=== PATIENT | male | born 1945 | race Caucasian/White ===

== ENCOUNTER 2016-05-08 12:00 | Inpatient (IN) | payer MEDICARE, OTHER ==
[~2016-05-08] VITALS: Ht 175.3 cm; Wt 141.2 kg
[2016-05-09] MEDS ORDERED: LEVO-154 PO (10:45)
[2016-05-09] MEDS ORDERED: METF500T PO (10:45)
[2016-05-09] MEDS ORDERED: ACTO30TA10 PO (10:45)
[2016-05-09] MEDS ORDERED: FENO145T2 PO (10:45)
[2016-05-09] MEDS ORDERED: DICL75TA PO (10:45)
[2016-05-09] MEDS ORDERED: METO25TA6 PO (10:45)
[2016-05-09] MEDS ORDERED: TEST200I12 IM (10:45)
[2016-05-09] MEDS ORDERED: ROSU10 PO (10:45)
[2016-05-09] MEDS ORDERED: MULT-135 PO (10:45)
[2016-05-09] MEDS ORDERED: IRBE300T46 PO (10:45)
[2016-05-09] MEDS ORDERED: OXYC-433 PO (10:45)
[2016-05-09] MEDS ORDERED: LANTINJ SQ (10:45)
--- NOTE | 2016-05-16 12:45 | MH ---
cc: PATRICIA ROWE DANNY M. M.D. DATE OF ADMISSION: 05/22/2016 ADMITTING DIAGNOSIS: Osteoarthritis of the left knee, varus deformity left knee patellofemoral disorder left knee pain left knee. HISTORY The patient is a 70-year-old white male who has had a rather lengthy history of pain involving his left knee. He had originally noted the onset of his symptoms unrelated to injury or unusual activity but had undergone previous orthopedic evaluation dating back to 1997 at which time the patient reports she was diagnosed as having a mild arthritic condition. He was also diagnosed as having osteoarthritis of his right hip for which she did subsequently undergo right total hip arthroplasty with the passage of time he became progressively more symptomatic with pain involving his left knee, becoming unresponsive to continued conservative management. He tried to modify his activities describing considerable limitation with regards to his endurance and weightbearing activity in general he had undergone a more recent orthopedic evaluation within the previous six or more months at which time he received a cortisone injection without any long-term benefit appreciated. He has subsequently been taking oxycodone for pain management as prescribed by his primary care physician. He presented to the undersigned physician in the early part of April of this year at which time he described considerable incapacitation with regards to all weightbearing activities. His x-ray studies revealed complete obliteration about the medial compartment with [id number] apposition associated with a varus deformity of almost 15 degrees magnitude and secondary involvement of the patellofemoral articulation. The possibility of a loose body within the popliteal region could not be absolutely excluded. Findings and treatment options were reviewed with the patient at that time the pros and cons of continuing with conservative management versus operative intervention that would involve a total knee arthroplasty were outlined in detail. Emphasis was made regarding the fact that the decision to proceed with surgery would be left entirely to the patient's discretion. The patient readily admitted that he felt that his level of discomfort had progressed to such a point in time where he was ready to proceed in this direction and thus requested that disposition be completed in this regard in compliance with his wishes he is currently being admitted in order that left total knee replacement be accomplished. PAST MEDICAL HISTORY: His past medical history, hospitalizations and surgeries include right total hip arthroplasty as described excision of nasal polyps. Colonoscopy and cystoscopy history of renal lithiasis. He has also received previous epidural steroid injections for history of low back pain. His medical illnesses include diabetes for which the patient does conform to a low-carbohydrate diet. MEDICATIONS 1. Avalide 300 - 12.5 daily. 2. Metformin 500 mg twice daily. 3. Metoprolol 25 mg twice daily. 4. Diclofenac 75 mg twice daily. 5. Centrum one daily 6. V to rid and 8 ounces packets daily. 7. Levofloxacin 0.175 mg daily. 8. Fenofibrate 145 mg daily 9. Crestor 10 mg daily. 10. Actos 30 mg daily. 11. Lantus polestar 16 units daily. 12. Oxycodone is taken p.r.n. pain management. 13. He also receives. Testosterone injections 300 mg twice monthly. ALLERGIES The patient denies any known drug allergies. REVIEW OF SYSTEMS: He does wear glasses, denies headache, seizure or syncope. Occasional sinus congestion, no epistaxis, auditory acuity intact. No tinnitus. No bleeding gums or dysphagia. Denies cough, shortness of breath, upper respiratory infection, pneumonia or tuberculosis. No angina or heart disease. Appetite is good, bowel movements are regular. There is been no hepatitis, gallbladder disease, ulcers or hemorrhoids. No urinary tract infection. He has a history of renal lithiasis, no prostate disease. No fractures. No psychiatric illness. He has undergone previous chiropractic intervention for low back pain. Remaining review of systems is unremarkable and noncontributory. FAMILY HISTORY The patient is 36 years. His is 60 years of age and described as being in good health. One son and one daughter indicated to be in good health. Family history is positive for hypertension, diabetes, stroke and lung cancer. 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 He denies active use of tobacco, ethanol consumption on social basis. PHYSICAL EXAMINATION IN GENERAL: Height 5 feet 10 inches, weight 299 pounds. An alert, oriented responsive 70-year-old white male who sits quietly upon examination table with no obvious distress. HEAD, EYES, EARS, NOSE, AND THROAT: Eyes, nose and throat pupils are equal, round and reactive to light. Extraocular movements full. Sclerae clear. External nares clear. External auditory canals clear. Dental intact. Mucous membranes pink and moist. Pharynx clear. NECK: Supple. Active range of motion with no significant pain. Carotid pulse bilaterally. Trachea midline. Thyroid without enlargement. LUNGS: The lungs are clear to auscultation and percussion. No CVA tenderness. No discomfort throughout the dorsal lumbar spine. HEART: Regular rhythm. There is a suggestion for a grade 2/6 systolic murmur, heard best at the right second intercostal space. ABDOMEN: The abdomen is soft, nontender. Bowel sounds present. RECTAL: Per primary care physician. EXTREMITIES: Left knee. There is a mild fullness about the knee were consistent with redundancy of soft tissue than an actual intra-articular effusion. Medial joint line tenderness without palpable deformity. Apprehension and compression sign negative. Limited mobility in the 100-110 degrees range of motion with a reproducible popping sensation elicited. No collateral ligamentous instability. Elias test and drawer sign negative. Pivot shift and Per sign positive for medial compartment pain. Straight-leg raising unremarkable at 80 degrees satisfactory mobility of the left hip with no associated pain. Distal sensory grossly intact. Mild antalgic gait. NEUROLOGIC: Cranial nerves II-XII grossly intact. IMPRESSION Severe osteoarthritis of the left knee, varus deformity left knee patellofemoral disorder left knee, pain left knee PLAN Left total knee arthroplasty. The nature of the planned surgical procedure the potential complications and risks associated the expectations of surgery and the consent form have been thoroughly reviewed with the patient prior to his admission to the hospital. Libby as indicated his full understanding regarding all of the above and given consent to proceed with treatment as outlined. Medical evaluation and clearance for surgery will be completed by his primary care physician Dr. Seth Araujo. MD JUAN Santos/chris /11:27 AM /12:01 PM
[2016-05-22 07:34] VITALS: BP 183/98; PULSE 66; RESP 22; TEMP 98.1; O2SAT 98
[2016-05-22] MEDS ORDERED: ceFAZolin 2 GM PREMIX 50 ML ONE (07:57)
[2016-05-22] MEDS ORDERED: INSULIN HUMAN REGULAR 1,000 UNITS/10 ML VIAL SQ PRN (08:00)
[2016-05-22] MEDS ORDERED: SODIUM CHLORID 0.9% 500 ML IV SCH (08:00)
[2016-05-22] MEDS ORDERED: METOPROLOL TARTRATE 25 MG TAB PO PRN (08:00)
[2016-05-22] MEDS ORDERED: LACTATED RINGER'S 1000 ML IV SCH (08:00)
[2016-05-22] MEDS: TRANEXAMIC ACID 1 GM POST-OP IV SCH ×4 (08:38→11:25)
[2016-05-22] MEDS: POVIDONE IODINE 7.5% SCRUB 118 ML BOTTLE TOP SCH (08:42)
[2016-05-22] MEDS ORDERED: TRANEXAMIC ACID 1 GM PRIOR TO PROCEDURE IV SCH ×2 (08:45)
[2016-05-22] MEDS ORDERED: ceFAZolin 2 GM PREMIX 50 ML IV SCH (08:45)
[2016-05-22] MEDS ORDERED: MIDAZOLAM HCL 5 MG/5 ML VIAL ONE (09:02)
[2016-05-22] MEDS ORDERED: FAMOTIDINE 20 MG/2 ML VIAL ONE (09:02)
[2016-05-22] MEDS ORDERED: DEXAMETHASONE SOD PHOS 4 MG/ML VIAL ONE (09:02)
[2016-05-22] MEDS ORDERED: ceFAZolin INJ 1,000 MG VIAL ONE (10:16)
[2016-05-22] MEDS ORDERED: ceFAZolin INJ 1,000 MG VIAL TOPICAL ONE (11:15)
[2016-05-22] MEDS ORDERED: BUPIVACAINE HCL PF 0.5% 30 ML VIAL NB ONE (11:42)
[2016-05-22] MEDS ORDERED: PROPOFOL 200 MG/20 ML AMP IV ONE (12:36)
[2016-05-22] MEDS ORDERED: LACTATED RINGER'S 1000 ML INJ 1,000 ML IV ONE (12:36)
[2016-05-22] MEDS ORDERED: PHENYLEPH/NS 1000 MCG/10 ML SYR IV ONE (12:36)
[2016-05-22] MEDS ORDERED: NEOSTIGMINE 3 MG/3 ML SYR IV ONE (12:36)
[2016-05-22] MEDS ORDERED: ePHEDrine/NS 25 MG/5 ML SYR IV ONE (12:36)
[2016-05-22] MEDS ORDERED: ONDANSETRON HCL 4 MG/2 ML VIAL IV PUSH ONE (12:36)
[2016-05-22] MEDS ORDERED: HYDROmorphone HCL PF 2 MG/ML VIAL ONE (13:04)
[2016-05-22] MEDS ORDERED: MISCELLANEOUS PHARMACY INFORMATION XX ONE (13:45)
[2016-05-22] MEDS ORDERED: BISACODYL 10 MG SUPP PR PRN (13:45)
[2016-05-22] MEDS ORDERED: DOCUSATE SODIUM 100 MG CAP PO PRN (13:45)
[2016-05-22] MEDS ORDERED: SODIUM CHLORIDE 0.9% FLUSH 5 ML FLUSH IVF PRN (13:45)
[2016-05-22] MEDS ORDERED: MAGNESIUM HYDROXIDE SUSP 30 ML CUP PO PRN (13:45)
[2016-05-22] MEDS ORDERED: oxyCODONE/ACETAMINOPHEN 5 MG/325 MG TAB PO PRN (13:45)
[2016-05-22] MEDS ORDERED: PROMETHAZINE INJ 25 MG/ML VIAL IM PRN (13:45)
[2016-05-22] MEDS ORDERED: ZOLPIDEM TARTRATE 5 MG TAB PO PRN (13:45)
[2016-05-22] MEDS ORDERED: NALOXONE HCL 0.4 MG/ML AMP IV PRN (13:45)
[2016-05-22] MEDS ORDERED: Post-op Orders (for Pharmacy) MISC XX ONE (13:45)
[2016-05-22] MEDS ORDERED: TRANEXAMIC ACID INJ 1,000 MG in SODIUM CHLORIDE 0.9% INJ 100 ML IV SCH (13:45)
[2016-05-22] MEDS ORDERED: diphenhydrAMINE HCL 25 MG CAP PO PRN (13:45)
[2016-05-22] MEDS ORDERED: ONDANSETRON HCL 4 MG/2 ML VIAL IVP PRN (13:45)
[2016-05-22] MEDS ORDERED: ACETAMINOPHEN 325 MG TAB PO PRN (13:45)
[2016-05-22] MEDS: PCA - TOTAL MG MORPHINE DELIVERED PER SHIFT SCH ×2 (14:00→21:13)
[2016-05-22] MEDS ORDERED: MORPHINE SULFATE 4 MG/ML INJ ONE (14:24)
[2016-05-22] MEDS ORDERED: fentaNYL CITRATE 250 MCG/5 ML AMP ONE (14:24)
[2016-05-22] MEDS ORDERED: MIDAZOLAM HCL 2 MG/2 ML VIAL ONE (14:26)
[2016-05-22] MEDS ORDERED: *morphine SULFATE 8 MG/ML PERIprocedure ONLY ONE (14:37)
[2016-05-22] MEDS: MORPHINE SULFATE 30 MG/30 ML PCA IV SCH (14:59)
[2016-05-22] MEDS ORDERED: DEXT 5%-NACL 0.45% 1000 ML INJ 1,000 ML IV SCH (15:00)
--- NOTE | 2016-05-22 15:04 | RADRPT ---
EXAM DATE/TIME: 05/22/2016 14:36 [facility] COMPARISON: No previous studies available for comparison. INDICATIONS : Eval knee post-op total replacement. MEDICAL HISTORY : None. SURGICAL HISTORY : None. ENCOUNTER: Initial ACUITY: 1 day PAIN SCORE: Non-responsive. LOCATION: Left Knee FINDINGS: Examination of the knee demonstrates arthroplasty in satisfactory position. The alignment is anatomic . CONCLUSION: Post surgical changes as above. Amador Blanchard MD on May 22, 2016 at 15:01 Board Certified Radiologist. This report was verified electronically.
[2016-05-22] MEDS: SODIUM CHLOR 0.9% 1000 ML INJ 1,000 ML IV SCH (15:15)
[2016-05-22] MEDS ORDERED: *ENALAPRILAT 1.25 MG/ML VIAL PERIprocedural Use ONLY ONE ×2 (15:39→16:08)
[2016-05-22] MEDS ORDERED: hydrALAZINE HCL 50 MG TAB PO PRN (16:30)
[2016-05-22] MEDS ORDERED: oxyCODONE/ACETAMINOPHEN 10 MG/325 MG TAB PO PRN (16:30)
[2016-05-22] MEDS: cloNIDine HCL 0.1 MG TAB PO PRN (16:46)
[2016-05-22 18:05] VITALS: BP 132/62; PULSE 76; RESP 18; TEMP 95.7; O2SAT 94
[2016-05-22 19:15] VITALS: BP 130/64; PULSE 67; RESP 18; TEMP 95.6; O2SAT 93
[2016-05-22] MEDS: metFORMIN HCL 500 MG TAB PO SCH (19:16)
[2016-05-22] MEDS: SODIUM CHLORIDE 0.9% FLUSH 5 ML FLUSH IVF SCH (20:22)
[2016-05-22] MEDS: INSULIN DETEMIR 100 UNITS/ML VIAL SQ SCH (20:22)
[2016-05-22] MEDS: METOPROLOL SUCCINATE 25 MG EXTENDED RELEASE TAB PO SCH (20:22)
[2016-05-22] MEDS ORDERED: IRBESARTAN HYDROCHLOROTHIAZIDE PO SCH (21:00)
[2016-05-22] MEDS: DICLOFENAC SODIUM 75 MG DELAYED RELEASE TAB PO SCH (21:13)
--- NOTE | 2016-05-22 21:41 | PD.CONS ---
[facility] Service [place] [facility] Consult Requested By Primary Care Physician Seth Araujo MD Diagnoses: Past Family Social History Allergies: Coded Allergies: No Known Allergies (Verified , 05/22/16) Physical Exam Vital Signs Vital Signs Date Time Temp Pulse Resp B/P Pulse Ox O2 Delivery O2 Flow Rate FiO2 05/22/16 19:15 95.6 67 18 130/64 93 05/22/16 18:05 95.7 76 18 132/62 94 05/22/16 18:00 98.7 70 15 155/69 97 Nasal Cannula 2 05/22/16 17:45 73 15 155/82 97 Nasal Cannula 2 05/22/16 16:45 77 16 155/51 97 Nasal Cannula 2 05/22/16 16:15 76 16 160/74 97 Nasal Cannula 2 05/22/16 15:45 63 15 165/78 97 Nasal Cannula 2 05/22/16 15:15 68 15 160/82 97 Nasal Cannula 2 05/22/16 15:00 71 15 170/78 97 Nasal Cannula 2 05/22/16 14:59 15 05/22/16 14:45 66 15 162/80 95 Nasal Cannula 2 05/22/16 14:30 72 16 175/82 95 Nasal Cannula 2 05/22/16 14:10 98.6 78 14 202/89 95 Nasal Cannula 2 05/22/16 07:34 98.1 66 22 183/98 98 Physical Exam GENERAL: This is a well-nourished, well-developed patient, in no apparent distress. SKIN: No rashes, ecchymoses or lesions. Cool and dry. HEAD: Atraumatic. Normocephalic. No temporal or scalp tenderness. EYES: Pupils equal round and reactive. Extraocular motions intact. No scleral icterus. No injection or drainage. ENT: Nose without bleeding, purulent drainage or septal hematoma. Throat without erythema, tonsillar hypertrophy or exudate. Uvula midline. Airway patent. NECK: Trachea midline. No JVD or lymphadenopathy. Supple, nontender, no meningeal signs. CARDIOVASCULAR: Regular rate and rhythm without murmurs, gallops, or rubs. RESPIRATORY: Clear to auscultation. Breath sounds equal bilaterally. No wheezes , rales, or rhonchi. GASTROINTESTINAL: Abdomen soft, non-tender, nondistended. No hepato-splenomegaly , or palpable masses. No guarding. MUSCULOSKELETAL: Extremities without clubbing, cyanosis, or edema. No joint tenderness, effusion, or edema noted. No calf tenderness. Negative Homans sign bilaterally. NEUROLOGICAL: Awake and alert. Cranial nerves II through XII intact. Motor and sensory grossly within normal limits. Five out of 5 muscle strength in all muscle groups. Normal speech. Laboratory Laboratory Tests Test 05/22/16 07:49 Blood Type A POSITIVE Antibody Screen NEGATIVE A/P Assessment and Plan Assessment End-stage osteoarthritis left knee Status post left total knee arthroplasty on 05/22/16 Poorly-controlled hypertension h/o Hypertension, morbid obesity, hyperlipidemia, asthma, hyperglycemia Management Pain management Physical therapy DVT prophylaxis wound care Bowel regimen Follow labs Electrolyte protocols Keep hemoglobin above 8 Discussed with patient Discussed with nurse We will follow this patient daily while hospitalized Thank you for this consult Jodie Rogel MD May 22, 2016 21:41
[2016-05-22 23:15] VITALS: BP 138/63; PULSE 64; RESP 17; TEMP 96.7; O2SAT 97
[2016-05-23] VITALS (8 sets, daily range): BP systolic 119–178; BP diastolic 56–78; PULSE 54–68; RESP 17–18; TEMP 96.8–98.1; O2SAT 93–98
[2016-05-23] MEDS: LEVOTHYROXINE SODIUM 75 MCG TAB PO SCH (04:51)
[2016-05-23] MEDS: SODIUM CHLOR 0.9% 1000 ML INJ 1,000 ML IV SCH ×2 (04:51→20:50)
[2016-05-23] MEDS: LEVOTHYROXINE SODIUM 100 MCG TAB PO SCH (04:51)
[2016-05-23 05:09] LABS: HEMATOCRIT 34.9 % (39.0-51.0); REVIEW FLAG FINAL
[2016-05-23] MEDS: PCA - TOTAL MG MORPHINE DELIVERED PER SHIFT SCH ×3 (05:36→22:00)
[2016-05-23 05:37] LABS: BICARBONATE 31.6 MEQ/L (21.0-32.0); MAGNESIUM 2.2 MG/DL (1.5-2.5)
[2016-05-23] MEDS ORDERED: ASPI325T PO (05:53)
[2016-05-23] MEDS ORDERED: OXYC1TAB63 PO (05:53)
--- NOTE | 2016-05-23 05:56 | HHI.FF ---
Face to Face Verification Diagnosis: (1) DJD (degenerative joint disease) of knee Physical Therapy Gait training Knee: Total knee, Protocol: Left, Full weight bearing Left LE Weight Bearing: WB as tolerated Left LE Range of Motion: Active ROM Nursing Dressing Changes: Daily dressing change I have seen patient Libby Denise, III on 05/23/16. My clinical findings support the need for the requested home health care services because: Limited ability to care for self High risk of falls I certify that my clinical findings support that this patient is homebound because: Post-op weakness Unsteady gait/balance Unsafe to leave home unassisted Jos Zhang MD May 23, 2016 05:56
[2016-05-23] MEDS ORDERED: WALKER WHEELS/F1 MIS (05:57)
[2016-05-23] MEDS: SODIUM CHLORIDE 0.9% FLUSH 5 ML FLUSH IVF SCH ×2 (08:10→20:50)
[2016-05-23] MEDS: ATORVASTATIN 20 MG TAB PO SCH (08:12)
[2016-05-23] MEDS: DICLOFENAC SODIUM 75 MG DELAYED RELEASE TAB PO SCH ×2 (08:12→20:49)
[2016-05-23] MEDS: metFORMIN HCL 500 MG TAB PO SCH (08:12)
[2016-05-23] MEDS: LOSARTAN 50 MG TAB PO SCH (08:12)
[2016-05-23] MEDS: METOPROLOL SUCCINATE 25 MG EXTENDED RELEASE TAB PO SCH ×2 (08:12→20:50)
[2016-05-23] MEDS: FENOFIBRATE 145 MG TAB PO SCH (08:13)
[2016-05-23] MEDS: MULTIVITAMIN TAB PO SCH (08:13)
[2016-05-23] MEDS: DOCUSATE SODIUM 100 MG CAP PO SCH ×3 (08:13→18:00)
[2016-05-23] MEDS: HYDROCHLOROTHIAZIDE 12.5 MG CAP PO SCH (08:13)
[2016-05-23] MEDS: POVIDONE IODINE 7.5% SCRUB 118 ML BOTTLE TOP SCH (08:27)
--- NOTE | 2016-05-23 08:57 | MB ---
cc: ERICK IRAHETA MD DATE OF CONSULTATION: 05/22/2016 DATE OF : 1945 REASON FOR CONSULTATION Medical management, hypertension uncontrolled. HISTORY OF PRESENT ILLNESS This is a pleasant 70-year-old white male who has had a rather lengthy history of osteoarthritis and pain in his left knee. He was evaluated per his orthopedist and decided to undergo a left total knee replacement. The patient is currently in the PACU resting in the bed with CPM on his left knee. The patient took his usual medications this a.m. as told before surgery. Postop he is in the PACU with systolic and diastolic hypertension. The patient's systolic has been as high as 202/89 and 183/98. He is currently alert, oriented, a good historian and states that he has had issues with his blood pressure in the past. PAST MEDICAL HISTORY 1. Nasal polyps. 2. Colonoscopy. 3. Cystoscopy. 4. Kidney stones. 5. Epidural steroid injections for low back pain. 6. Diabetes mellitus type 2. 7. Osteoarthritis. PAST SURGICAL HISTORY 1. Right hip total hip arthroplasty. 2. Current left total knee replacement. ALLERGIES NO KNOWN. HOME MEDICATIONS 1. Testosterone. 2. Avalide. 3. Metoprolol. 4. Metformin. 5. Fenofibrate. 6. Crestor. 7. Lantus insulin. 8. Multivitamins. 9. Diclofenac. 10. Oxycodone. 11. Actos. 12. Thyroxine. REVIEW OF SYSTEMS A 10-point review was obtained. Positives noted are his recent left knee replacement, pain control and hypertension. All other systems are negative or unremarkable. PHYSICAL EXAMINATION VITAL SIGNS: Temp 98.6, pulse 76, respirations 16, blood pressure 160/74 at this time, O2 at 2 liters nasal cannula. GENERAL: Obese white male, looks to be stated age, resting in the bed, alert, able to answer questions. SKIN: [place], warm and dry. HEENT/NECK: Atraumatic, normocephalic. PERRLA at 3 mm. Neck is thick, supple. He has no scleral icterus. No JVD. Mucous membranes are pink and moist. CARDIOVASCULAR: S1, S2. Systolic murmur noted at the second intercostal space left sternal border. He has a minimal trace of edema in his lower extremities. RESPIRATORY: Lungs are essentially clear anteriorly and posteriorly with no wheezes, rales or rhonchi. GASTROINTESTINAL: Abdomen is obese, soft, nontender, nondistended. Active bowel sounds in all four quadrants. MUSCULOSKELETAL: He can move his upper extremities with purpose. 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 He moves his right leg on command. Left leg, he is able to move his toes, leg is currently in the CPM machine. NEUROLOGIC: He is alert and oriented x4. A good historian. Speech is clear. PSYCHIATRIC: Affect and mood are appropriate. DIAGNOSTIC DATA White count is 4.9, RBC 4.69, hemoglobin 14.1, hematocrit 42.5, platelet count 168. His PT/INR is 1. Chemistry: Sodium is 137, potassium 4.7, chloride 100, carbon dioxide 31, anion gap 6, BUN 33, creatinine 1.55, glucose 112, calcium 9.3. His urine is yellow, clear, pH is 5.5, specific gravity is 1.024, trace of protein, trace of ketones, trace of leukocyte esterase. Culture not indicated. His imaging studies show a chest x-ray with cardiomegaly, segmental atelectasis versus scarring of the left lung, no evidence of pneumonia. ASSESSMENT 1. Hypertension uncontrolled. 2. Leukocytosis mild. 3. Osteoarthritis. The patient is status post left total knee replacement. 4. Degenerative disc disease. 5. Diabetes mellitus type 2. 6. Acute kidney injury/renal insufficiency. PLAN 1. Monitor the patient's blood pressure which will include p.o. and/or IV medication if needed. 2. We will reconcile his medications. 3. He will receive Accu-Cheks a.c. and h.s. and his insulin dose is 16 units at h.s. with sliding scale. 4. The patient will have pain management which will predominantly be managed by Ortho. 5. The patient will also receive CPM, incentive spirometry and any pertinent treatments regarding his surgery will be managed by Ortho in their expert opinion. 6. The patient has had BP medication in the PACU and is currently running a blood pressure which is normal for him. 7. We will monitor labs in the morning. Dictated by: OPAL Bhandari MD KACY Beyer/ROGE /5:18 PM /8:58 AM
[2016-05-23] MEDS ORDERED: NON-FORMULARY DRUG (Levothyroxine 175 MCG) PO SCH (09:00)
[2016-05-23] MEDS: RIVAROXABAN 10 MG TAB PO SCH (12:23)
[2016-05-23] MEDS: oxyCODONE/ACETAMINOPHEN 5 MG/325 MG TAB PO PRN (12:24)
--- NOTE | 2016-05-23 12:30 | HHI.PR ---
Subjective Subjective Remarks pain well controlled eating okay, no N/V no fever no cp no sob voiding okay at bsd Review of Systems Constitutional Constitutional Remarks 12 point ROS completed, negative except as noted above Vitals/Results Intake & Output 05/22/16 05/22/16 05/23/16 15:00 23:00 07:00 Intake Total 1900 ml 780 ml 1059 ml Output Total 50 ml 305 ml 575 ml Balance 1850 ml 475 ml 484 ml Intake Oral 480 ml 480 ml IV Total 300 ml 579 ml Other 1900 ml Output Urine Total 0 ml 200 ml 500 ml Drainage Total 105 ml 75 ml Estimated Blood Loss 50 ml # Voids 3 # Bowel Movements 0 0 Vital Signs Vital Signs Date Time Temp Pulse Resp B/P Pulse Ox O2 Delivery O2 Flow Rate FiO2 05/23/16 12:00 97.8 63 18 134/61 93 05/23/16 08:00 96.8 54 18 119/56 98 05/23/16 07:59 97 21 05/23/16 03:25 97.2 59 17 136/62 95 05/22/16 23:15 96.7 64 17 138/63 97 05/22/16 19:15 95.6 67 18 130/64 93 05/22/16 18:05 95.7 76 18 132/62 94 05/22/16 18:00 98.7 70 15 155/69 97 Nasal Cannula 2 05/22/16 17:45 73 15 155/82 97 Nasal Cannula 2 05/22/16 16:45 77 16 155/51 97 Nasal Cannula 2 05/22/16 16:15 76 16 160/74 97 Nasal Cannula 2 05/22/16 15:45 63 15 165/78 97 Nasal Cannula 2 05/22/16 15:15 68 15 160/82 97 Nasal Cannula 2 05/22/16 15:00 71 15 170/78 97 Nasal Cannula 2 05/22/16 14:59 15 05/22/16 14:45 66 15 162/80 95 Nasal Cannula 2 05/22/16 14:30 72 16 175/82 95 Nasal Cannula 2 05/22/16 14:10 98.6 78 14 202/89 95 Nasal Cannula 2 CBC/BMP: 05/23/16 0429 05/23/16 0429 Lab Results Laboratory Tests Test 05/23/16 04:29 Hemoglobin 11.5 GM/DL Hematocrit 34.9 % Sodium Level 142 MEQ/L Potassium Level 5.0 MEQ/L Chloride Level 102 MEQ/L Carbon Dioxide Level 31.6 MEQ/L Anion Gap 8 MEQ/L Blood Urea Nitrogen 39 MG/DL Creatinine 1.70 MG/DL Estimat Glomerular Filtration 40 ML/MIN Rate Random Glucose 110 MG/DL Calcium Level 8.5 MG/DL Phosphorus Level 3.4 MG/DL Magnesium Level 2.2 MG/DL Physical Exam General General Appearance: Well Developed, Well Nourished, Comfortable, Obese Eyes Eye Exam: Pupils Equal, Pupils Reactive Ears & Nose Ears & Nose Exam: Nasal Mucosa [place] Throat Throat Exam: Oral Mucosa [place] & Moist Neck Neck Exam: Neck Supple, Trachea Midline Pulmonary Resp Exam: Clear Bilaterally, Breath Sounds Equal, No Distress Cardiology CV Exam: Regular, Good Perfusion Gastrointestinal/Abdomen GI Exam: Soft, Bowel Sounds Present, Distended Musculoskeletal MS Remarks Left knee with dressing D/I Integumentary Skin Exam: Warm, Dry Extremeties Extremities Exam: Pedal Pulses Palpable, Trace Edema Neurologic Neuro Exam: Alert, Awake, Oriented, Speech Clear, Moving All Extremities, No Focal Deficits Psychiatric Psych Exam: Appropriate Responses VTE Prophylaxis VTE Remarks Xarelto Assessment/Plan Assessment/Plan End-stage osteoarthritis left knee Status post left total knee arthroplasty on 05/22/16 Poorly-controlled hypertension Morbid obesity hyperlipidemia asthma hyperglycemia DM II Acute renal injury Plan continue with IVF pain management Post op ortho care Xarelto DVT prophylaxis Creat elevated, etiology unclear, will hold Metformin continue IVF will need renal evaluation as OP Monitor HH, stable Control BP, improved, continue PO meds may need to stop Cozaar if creat continues to increase Labs in am D/W RN D/W Dr. Rogel D/W pt, This patient was seen by myself and Dr. Rogel, this note is written on his behalf. Genesis Blankenship May 23, 2016 12:30
[2016-05-23] MEDS: INSULIN DETEMIR 100 UNITS/ML VIAL SQ SCH (20:49)
[2016-05-24] MEDS: cloNIDine HCL 0.1 MG TAB PO PRN (00:34)
[2016-05-24] MEDS: oxyCODONE/ACETAMINOPHEN 5 MG/325 MG TAB PO PRN ×3 (00:34→15:20)
[2016-05-24 04:17] VITALS: BP 135/63; PULSE 57; RESP 17; TEMP 96.9; O2SAT 95
[2016-05-24] MEDS: LEVOTHYROXINE SODIUM 100 MCG TAB PO SCH (05:11)
[2016-05-24] MEDS: LEVOTHYROXINE SODIUM 75 MCG TAB PO SCH (05:11)
[2016-05-24] MEDS: PCA - TOTAL MG MORPHINE DELIVERED PER SHIFT SCH ×3 (06:00→22:00)
[2016-05-24 06:24] LABS: BICARBONATE 31.3 MEQ/L (21.0-32.0); POTASSIUM 4.7 MEQ/L (3.5-5.1)
[2016-05-24 06:26] LABS: HEMATOCRIT 34.7 % (39.0-51.0); MEAN CELL VOLUME 91.3 FL (80.0-100.0); MEAN CORPUSCULAR HEMOGLOBIN 29.8 PG (27.0-34.0); MEAN CORPUSCULAR HGB CONC 32.6 % (32.0-36.0); PLATELET COUNT 124 TH/MM3 (150-450); RED CELL DISTRIBUTION WIDTH 14.1 % (11.6-17.2); REVIEW FLAG FINAL; WHITE BLOOD COUNT 6.3 TH/MM3 (4.0-11.0)
[2016-05-24 07:25] VITALS: O2SAT 97
[2016-05-24 08:00] VITALS: BP 143/78; PULSE 56; RESP 19; TEMP 96.9; O2SAT 97
[2016-05-24] MEDS: POVIDONE IODINE 7.5% SCRUB 118 ML BOTTLE TOP SCH (08:45)
[2016-05-24] MEDS: FENOFIBRATE 145 MG TAB PO SCH (08:46)
[2016-05-24] MEDS: LOSARTAN 50 MG TAB PO SCH (08:46)
[2016-05-24] MEDS: HYDROCHLOROTHIAZIDE 12.5 MG CAP PO SCH (08:46)
[2016-05-24] MEDS: ATORVASTATIN 20 MG TAB PO SCH (08:46)
[2016-05-24] MEDS: METOPROLOL SUCCINATE 25 MG EXTENDED RELEASE TAB PO SCH ×2 (08:46→19:48)
[2016-05-24] MEDS: SODIUM CHLORIDE 0.9% FLUSH 5 ML FLUSH IVF SCH ×2 (08:47→19:49)
[2016-05-24] MEDS: MULTIVITAMIN TAB PO SCH (08:47)
[2016-05-24] MEDS: DOCUSATE SODIUM 100 MG CAP PO SCH ×3 (08:47→15:20)
[2016-05-24] MEDS: DICLOFENAC SODIUM 75 MG DELAYED RELEASE TAB PO SCH ×2 (08:47→19:48)
[2016-05-24 12:00] VITALS: BP 154/74; PULSE 58; RESP 18; TEMP 98; O2SAT 94
[2016-05-24] MEDS: RIVAROXABAN 10 MG TAB PO SCH ×2 (13:00→15:20)
--- NOTE | 2016-05-24 13:17 | HHI.PR ---
Subjective Subjective Remarks pain well controlled eating okay, no N/V no bm yet no fever no cp no sob voiding okay Review of Systems Constitutional Constitutional Remarks 12 point ROS completed, negative except as noted above Vitals/Results Intake & Output 05/23/16 05/23/16 05/24/16 15:00 23:00 07:00 Intake Total 461 ml 1413 ml 670 ml Output Total 105 ml 70 ml 10 ml Balance 356 ml 1343 ml 660 ml Intake Oral 1080 ml 240 ml IV Total 461 ml 333 ml 430 ml Drainage Total 105 ml 70 ml 10 ml # Voids 5 2 # Bowel Movements 0 0 Vital Signs Vital Signs Date Time Temp Pulse Resp B/P Pulse Ox O2 Delivery O2 Flow Rate FiO2 05/24/16 12:00 98.0 58 18 154/74 94 05/24/16 08:00 96.9 56 19 143/78 97 05/24/16 07:25 97 21 05/24/16 06:00 17 05/24/16 04:17 96.9 57 17 135/63 95 05/23/16 23:10 98.1 68 17 178/78 96 05/23/16 22:00 17 05/23/16 21:24 94 21 05/23/16 20:05 97.6 62 17 150/68 94 05/23/16 16:00 97.2 67 18 138/64 94 05/23/16 14:00 18 CBC/BMP: 05/24/16 0525 05/24/16 0525 Lab Results Laboratory Tests Test 05/24/16 05:25 White Blood Count 6.3 TH/MM3 Red Blood Count 3.80 MIL/MM3 Hemoglobin 11.3 GM/DL Hematocrit 34.7 % Mean Corpuscular Volume 91.3 FL Mean Corpuscular Hemoglobin 29.8 PG Mean Corpuscular Hemoglobin 32.6 % Concent Red Cell Distribution Width 14.1 % Platelet Count 124 TH/MM3 Mean Platelet Volume 11.6 FL Sodium Level 139 MEQ/L Potassium Level 4.7 MEQ/L Chloride Level 103 MEQ/L Carbon Dioxide Level 31.3 MEQ/L Anion Gap 5 MEQ/L Blood Urea Nitrogen 44 MG/DL Creatinine 1.74 MG/DL Estimat Glomerular Filtration 39 ML/MIN Rate Random Glucose 119 MG/DL Calcium Level 8.7 MG/DL Physical Exam General General Appearance: Well Developed, Well Nourished, Comfortable, Obese Eyes Eye Exam: Pupils Equal, Pupils Reactive Ears & Nose Ears & Nose Exam: Nasal Mucosa [place] Throat Throat Exam: Oral Mucosa [place] & Moist Neck Neck Exam: Neck Supple, Trachea Midline Pulmonary Resp Exam: Clear Bilaterally, Breath Sounds Equal, No Distress Cardiology CV Exam: Regular, Good Perfusion Gastrointestinal/Abdomen GI Exam: Soft, Bowel Sounds Present, Distended Musculoskeletal MS Remarks Left knee with dressing D/I Integumentary Skin Exam: Warm, Dry Extremeties Extremities Exam: Pedal Pulses Palpable, Trace Edema Neurologic Neuro Exam: Alert, Awake, Oriented, Speech Clear, Moving All Extremities, No Focal Deficits Psychiatric Psych Exam: Appropriate Responses VTE Prophylaxis VTE Remarks Xarelto Assessment/Plan Assessment/Plan End-stage osteoarthritis left knee Status post left total knee arthroplasty on 05/22/16 Poorly-controlled hypertension Morbid obesity hyperlipidemia asthma hyperglycemia DM II Acute renal injury, appears to be chronic Plan continue with IVF pain management-on PO narcotics now Post op ortho care Xarelto DVT prophylaxis Creat 1.7, no change pt. denies hx of CKD, instructed to follow up PCP, avoid NSAIDs Monitor HH, stable Control BP, improved, continue PO meds Continue Cozaar Bowel regimen pt. going home tomorrow with [facility]HC D/W RN D/W Dr. Rogel D/W pt, This patient was seen by myself and Dr. Rogel, this note is written on his behalf. Genesis Blankenship May 24, 2016 13:17
[2016-05-24] MEDS: MORPHINE SULFATE 30 MG/30 ML PCA IV SCH (14:10)
[2016-05-24 16:00] VITALS: BP 151/63; PULSE 67; RESP 18; TEMP 98.2; O2SAT 97
[2016-05-24] MEDS: INSULIN DETEMIR 100 UNITS/ML VIAL SQ SCH (19:48)
[2016-05-24 20:55] VITALS: BP 161/75; PULSE 67; RESP 18; TEMP 96.7; O2SAT 95
[2016-05-24] MEDS: SODIUM CHLOR 0.9% 1000 ML INJ 1,000 ML IV SCH (22:21)
[2016-05-25 00:23] VITALS: BP 144/72; PULSE 58; RESP 18; TEMP 97.5; O2SAT 97
[2016-05-25 04:00] VITALS: BP 150/82; PULSE 68; RESP 20; TEMP 97.2; O2SAT 95
[2016-05-25] MEDS: LEVOTHYROXINE SODIUM 75 MCG TAB PO SCH (05:33)
[2016-05-25] MEDS: PCA - TOTAL MG MORPHINE DELIVERED PER SHIFT SCH (05:33)
[2016-05-25] MEDS: LEVOTHYROXINE SODIUM 100 MCG TAB PO SCH (05:33)
--- NOTE | 2016-05-25 05:51 | MP ---
cc: PATRICIA ROWE DATE OF SURGERY: 05/22/2016 PREOPERATIVE DIAGNOSIS: 1. Osteoarthritis, left knee. 2. Varus deformity, left knee. 3. Patellofemoral disorder, left knee. 4. Pain of the left knee. POSTOPERATIVE DIAGNOSIS: 1. Osteoarthritis, left knee. 2. Varus deformity, left knee. 3. Patellofemoral disorder, left knee. 4. Pain of the left knee. OPERATION: Left total knee arthroplasty. SURGEON: MD Leatha. ANESTHESIA; General endotracheal anesthesia INDICATIONS FOR PROCEDURE: This is a 70 year-old white male with a lengthy history of left knee pain having noted the onset of his symptoms unrelated to injury or unusual activity but had undergone previous orthopedic evaluation extending back to 1997 at which time the patient reports he was diagnosed as having arthritic condition. He was also diagnosed as having arthritis of his right hip for which he did subsequently undergo a right total hip arthroplasty over the passage of time he became progressively more symptomatic with pain involving his left knee which became unresponsive to continued conservative management. He tried to modify his activities describing slow limitations with regards to endurance and weightbearing stress for which she had undergone a more recent orthopedic evaluation within the previous 6 or more months and at that time he did receive a cortisone injection without any long-term benefit appreciated. He subsequently began taking oxycodone for pain management as prescribed by his primary care physician. He presented to the undersigned physician in April of this year at which time he described considerable incapacitation with regards to all weightbearing activities. His x-ray studies revealed complete obliteration about the medial compartment with [id number] apposition associated with a varus deformity of almost 15 degrees magnitude and secondary involvement the patellofemoral articulation. The possibility of a loose body within the popliteal region could not be absolutely excluded findings and treatment options were reviewed with the patient at that time the pros and cons of continuing with conservative management versus operative intervention that would involve a total knee arthroplasty were outlined in detail. Emphasis was made regarding the fact that the decision to proceed with surgery would be left entirely to the patient's discretion. The patient readily admitted that he felt his overall level of discomfort had progressed such a point where he was ready to proceed in this direction and requested to being scheduled accordingly in compliance with his wishes he is currently being admitted in order that left total knee arthroplasty be accomplished. FORMAT: Following induction of satisfactory general anesthesia by endotracheal intubation as completed per department of anesthesia a tourniquet was established around the proximal portion of the left lower extremity. The extremity proper was isolated with a U drape thereafter being prepped with Betadine solution and draped into a sterile field in the routine manner. Prior to initiation of the actual procedure the standard time-out protocol was completed all parameters were appropriately addressed and confirmed by operating room personnel. The extremity was elevated for approximately 1 minute. The tourniquet thus inflated to 250 mmHg pressure. Sharp skin incision was initiated midline over the anterior aspect of the knee and developed underlying subcutaneous tissue with hemostasis maintained by electrocautery. By deepening dissection the anterior capsule was exposed. A medial capsulotomy completed in the patella subluxed in a lateral orientation. Examination of the joint space revealed severe degenerative changes throughout the medial compartment extending into the patellofemoral articulation. There was complete erosion of articular cartilage with underlying subchondral bone exposed pronounced attenuation of the anterior cruciate ligament. The medial and lateral meniscus structures as well as the remnant of the anterior cruciate ligament were sharply excised. The articular surface of the patella was resected and three holed guide was utilized for establishing post holes. A centering hole was placed in the distal aspect of the femur allowing positioning of the intramedullary guide. The distal femoral cutting jig was attached and the distal femur resected. AP measurement noted 67.5 mm sizing to be appropriate. The matching cutting block was positioned anterior, posterior and chamfer cuts were completed. The tibial plateau was thereafter subluxed in anterior orientation allowing positioning of the extramedullary guide. The tibial plateau was resected measured with 79 mm sizing determined to be satisfactory. A trial reduction followed utilizing a 67.5 mm anatomic femoral component, a 79 mm tibial base with a 10 mm bearing insert. The knee was readily brought to full extension. There was no laxity to varus valgus stress at both zero and 90 degrees flexed posture. Orientation was confirmed as being appropriate with measurement the pelvic guide through the mechanical axis of the knee. A trial reduction followed utilizing a 31 mm standard patellar button. Once again good tracking was demonstrated with no tendency toward subluxation. All trial components being removed the remaining portion of the proximal tibia was prepared for insertion of the permanent component. The joint space was thoroughly lavaged with pulsating antibiotic solution. Hemostasis maintained by electrocautery. An autogenous bone plug was inserted into the distal femoral guide hole and thereafter a preparation of cobalt bone cement was utilized in inserting knee components in a sequential fashion which included a 79 mm fixed cruciate tibial plate to which 10 mm Vanguard tibial bearing insert was secured with locking winslow. The 67.5 mm vanguard femoral component was firmly seated. Excess cement being removed the knee was brought to full extension and thereafter the 31 mm standard patellar button was attached and maintained in place with patellar clamp while cement hardening was completed. Final range of motion assessment noted good tracking stability throughout the knee. Irrigation was repeated with hemostasis maintained. Automatic drain tubes were inserted through superior stab wounds. The capsule was repaired with 0 Vicryl suture. The remaining portion of the wound was closed in layers in the routine manner. Skin margins being reapproximated with a running subcuticular 3-0 Vicryl suture over which Steri-Strips were applied. Xeroform gauze and a bulky dry sterile dressing placed. Tourniquet deflated after 1 hour and 13 minutes of tourniquet time, the extremity being supported by canvas knee splint anesthesia was discontinued and the patient thus transferred to a hospital bed returned to recovery room in satisfactory condition having tolerated his operative procedure well. Estimated blood loss was approximately 50 cc as determined per anesthesia. All implants were of the Biomet supervisor wound. MD JUAN Santos/ /1:31 PM /5:35 AM
[2016-05-25 08:30] VITALS: BP 156/72; PULSE 58; RESP 18; TEMP 97.8; O2SAT 95
[2016-05-25] MEDS: SODIUM CHLORIDE 0.9% FLUSH 5 ML FLUSH IVF SCH (09:00)
[2016-05-25] MEDS: ATORVASTATIN 20 MG TAB PO SCH (09:12)
[2016-05-25] MEDS: MULTIVITAMIN TAB PO SCH (09:12)
[2016-05-25] MEDS: METOPROLOL SUCCINATE 25 MG EXTENDED RELEASE TAB PO SCH (09:12)
[2016-05-25] MEDS: HYDROCHLOROTHIAZIDE 12.5 MG CAP PO SCH (09:13)
[2016-05-25] MEDS: DICLOFENAC SODIUM 75 MG DELAYED RELEASE TAB PO SCH (09:14)
[2016-05-25] MEDS: DOCUSATE SODIUM 100 MG CAP PO SCH (09:14)
[2016-05-25] MEDS: LOSARTAN 50 MG TAB PO SCH (09:15)
[2016-05-25] MEDS: FENOFIBRATE 145 MG TAB PO SCH (09:15)
--- NOTE | 2016-05-28 21:16 | MD ---
cc: CASESETH NORMAN ADMISSION DATE: 05/22/2016 DISCHARGE DATE: 05/25/2016 ADMISSION DIAGNOSIS Osteoarthritis of the left knee, varus deformity left knee, patellofemoral disorder left knee and pain of the left knee. DISCHARGE DIAGNOSIS Osteoarthritis of the left knee, varus deformity left knee, patellofemoral disorder left knee and pain of the left knee. HISTORY A 70-year-old white male with a lengthy history of left knee pain onset being unrelated to injury or unusual activity. The patient reported that he had undergone previous orthopedic evaluation dating back to 1997 at which time he was diagnosed as having an arthritic condition. He also was noted to have osteoarthritis of his right hip for which he did subsequently undergo a right total hip arthroplasty, but with the passage of time became progressively more symptomatic with pain involving his left knee, becoming unresponsive to continued conservative management. He modified his activity level with considerable limitations regarding his endurance and weightbearing activities and had undergone a more recent orthopedic evaluation within the previous six or more months at which time he received a cortisone injection without any benefit appreciated. He began taking oxycodone for pain management as prescribed by his primary care physician. He presented to the undersigned physician in the early part of April of this year and, at that time, he described considerable incapacitation with regards to all weightbearing activities. His x-ray studies revealed complete obliteration about the medial compartment with [id number] apposition associated with a varus deformity of almost 15 degrees magnitude and secondary involvement of the patellofemoral articulation. The possibility of a loose body within the popliteal region could not be absolutely excluded. Findings and treatment options were reviewed with the patient at that time, the pros and cons of continuing with conservative management versus operative intervention involving total knee arthroplasty were outlined in detail. Emphasis was made regarding the fact that the decision to proceed with surgery would be left entirely to the patient's discretion. The patient readily admitted that he felt his level of discomfort had progressed to such a point he was ready to proceed with surgery as discussed. In compliance with his wishes, he was scheduled for admission at this time in order that the above be accomplished. His physical examination of the time of admission revealed a mild fullness about the left knee more consistent with redundancy of soft tissue than an actual intra-articular effusion. There was medial joint line tenderness without palpable deformity. Apprehension and compression sign negative. Limited mobility in the 100-110 degree range of motion with a reproducible popping sensation elicited. No collateral ligamentous instability. Elias test and drawer sign negative. Pivot shift and Per sign positive for medial compartment pain. Straight-leg raising unremarkable at 80 degrees. Satisfactory mobility of the left hip with no associated pain. Distal sensory grossly intact. Mild antalgic gait. HOSPITAL COURSE Prior to admission to the hospital, the patient underwent medical evaluation and clearance for surgery as completed by his primary care physician, Dr. Seth Araujo. He was taken to the operating room on 05/22/16 and, on that date, underwent a left total knee arthroplasty completed in an uncomplicated manner. The patient was noted to have tolerated his operative procedure well and his postoperative course stable thereafter. He was progressively mobilized under the guidance of physical therapy being permitted weightbearing to tolerance about the left lower extremity. Follow up examination of the surgical wound noted to be intact healing favorably, no evidence of infection. Medical followup per the hospitalist service. DVT prophylaxis initiated. building services engineer consulted to assist with discharge planning. Hemoglobin/hematocrit assessment postoperatively was 11.5 and 34.9 respectively. The patient had expressed his desire to be discharged home and continue his rehabilitation on outpatient basis. Plans were finalized in this regard and pending medical clearance, he was scheduled for discharge on the third postoperative day at which time he was noted making favorable progress with regards to his rehab program. He was scheduled to be seen in office followup in approximately 4 weeks. His condition at the time of discharge was stable. Prognosis favorable. DISCHARGE MEDICATIONS 1. Oxycodone 5/325. #60 2. Aspirin 325 mg 1 tablet twice daily for 3 weeks. #40. MD JUAN Santos/ /6:18 AM /9:03 PM
== END 2016-05-25 11:05 | disposition home health service (06) | DRG 470 ==
LOC: HSDI 05-22 05:55 → N06A 05-22 18:07
PROVIDERS: ADMIT Orthopaedic Surgery; ATTEND Orthopaedic Surgery
PROC: 3E0T3CZ (ICD-10-PCS; 2016-05-22)
PROC: 0SRD0J9 Replacement of Left Knee Joint with Synthetic Substitute, Cemented, Open Approach (ICD-10-PCS; principal; 2016-05-22 10:26)
DX: M17.12 Unilateral primary osteoarthritis, left knee (principal); N17.9 Acute kidney failure, unspecified; E11.65 Type 2 diabetes mellitus with hyperglycemia; Z68.42 Body mass index [BMI] 45.0-49.9, adult; E66.01 Morbid (severe) obesity due to excess calories; I10 Essential (primary) hypertension; M21.162 Varus deformity, not elsewhere classified, left knee; E78.5 Hyperlipidemia, unspecified; J45.909 Unspecified asthma, uncomplicated; D72.829 Elevated white blood cell count, unspecified; Z96.641 Presence of right artificial hip joint; Z79.4 Long term (current) use of insulin; Z87.442 Personal history of urinary calculi
CPT/HCPCS: 73560; 80048; 82948; 83735; 84100; 85014; 85018; 85027; 86850; 86900; 86901; 88305; 94150; C1776; J0690; J1100; J1170; J2250; J2270; J2370; J2405; J2710; J3010; J7030; J7120; L1830

== ENCOUNTER → 2016-05-09 | Outpatient (CLI) | payer MEDICARE, OTHER ==
[~2016-05-09] MED LIST: ACTO30TA10 PO; ASPI325T PO; DICL75TA PO; FENO145T2 PO; IRBE300T46 PO; LANTINJ SQ; LEVO-154 PO; METF500T PO; METO25TA6 PO; MULT-135 PO; OXYC-433 PO; OXYC1TAB63 PO; ROSU10 PO; TEST200I12 IM; WALKER WHEELS/F1 MIS
[2016-05-09 10:33] LABS: HEMATOCRIT 42.5 % (39.0-51.0); MEAN CELL VOLUME 90.7 FL (80.0-100.0); MEAN CORPUSCULAR HGB CONC 33.1 % (32.0-36.0); PLATELET COUNT 168 TH/MM3 (150-450); RED BLOOD COUNT 4.69 MIL/MM3 (4.50-5.90); RED CELL DISTRIBUTION WIDTH 14.5 % (11.6-17.2); REVIEW FLAG FINAL; WHITE BLOOD COUNT 4.9 TH/MM3 (4.0-11.0)
[2016-05-09 10:37] LABS: BLOOD, URINE NEG (NEG); GLUCOSE,URINE NEG (NEG); HYALINE CAST, URINE 1 /lpf (RARE); KETONE, URINE TRACE mg/dL (NEG); MUCUS URINE FEW /lpf (OCC); NITRITE,URINE NEG (NEG); PH, URINE 5.5 (5.0-8.5); SQUAMOUS EPITHELIAL CELL URINE <1 /hpf (0-5); URINE COLOR YELLOW (YELLW/STRAW)
[2016-05-09 10:38] LABS: COMMENT (UR) CULT NOT INDICATED; CULTURE IF INDICATED CULT NOT INDICATED
[2016-05-09 10:45] LABS: PROTHROMBIN TIME - PATIENT 11.4 SEC (9.8-11.6)
[2016-05-09 11:07] LABS: POTASSIUM 4.7 MEQ/L (3.5-5.1)
--- NOTE | 2016-05-09 11:14 | RADRPT ---
EXAM DATE/TIME: 05/09/2016 11:05 [facility] COMPARISON: No previous studies available for comparison. INDICATIONS : Evaluate for pneumonia, pneumothorax or communicable disease. pre surgery Left knee arthroplasty MEDICAL HISTORY : Hypertension. Diabetes mellitus type II. SURGICAL HISTORY : None. ENCOUNTER: Initial ACUITY: 1 day PAIN SCORE: 0/10 LOCATION: Bilateral chest FINDINGS: The cardiac silhouette is enlarged in transverse diameter. There is linear atelectasis versus scar on the left. There is elevation of the right hemidiaphragm. There is multilevel degenerative change thr oughout the spine. CONCLUSION: 1. Cardiomegaly. Subsegmental atelectasis versus scar left midlung. There is no evidence of pneumoni a. Amador Blanchard MD on May 09, 2016 at 11:12 Board Certified Radiologist. This report was verified electronically.
--- NOTE | 2016-05-10 23:06 | EKG ---
Date Performed: 05/09/2016 Time Performed: 10:16:53 PTAGE: 70 years EKG: Sinus rhythm RIGHT BUNDLE BRANCH BLOCK LEFT ANTERIOR FASCICULAR BLOCK ABNORMAL ECG PREVIOUS TRACING : 05/09/2016 10.14 DOCTOR: Miguel John Interpretating Date/Time 05/10/2016 22:55:39
== END ==
LOC: CPRE 09:44
PROVIDERS: ATTEND Orthopaedic Surgery
DX: Z01.810 Encounter for preprocedural cardiovascular examination (principal); M17.12 Unilateral primary osteoarthritis, left knee; Z01.812 Encounter for preprocedural laboratory examination; Z01.818 Encounter for other preprocedural examination
CPT/HCPCS: 36415; 71020; 80048; 81001; 85027; 85610; 93005

== ENCOUNTER → 2017-07-17 | Day surgery (SDC) | payer MEDICARE, OTHER ==
[~2017-07-17] MED LIST changes: -ACTO30TA10 PO; +ASPI-183 PO; -ASPI325T PO; -DICL75TA PO; +INSU1INJ14 SQ; +LIDOCAINE HCL 1% 30 ML VIAL INFIL ONE; +MEPERIDINE HCL 25 MG/ML VIAL IV ONE; +MEPERIDINE HCL 50 MG/ML VIAL IV ONE; +METO1TAB42 PO; -METO25TA6 PO; +MIDAZOLAM HCL 2 MG/2 ML VIAL IV ONE; +PIOG30 PO; +PROPOFOL 200 MG/20 ML AMP IV ONE; +SODIUM CHLORIDE 0.9% 10 ML VIAL ONE; +methylPREDNISolone ACETATE 40 MG/ML VIAL I-ARTICULR ONE
--- NOTE | 2017-07-17 09:29 | M6 ---
cc: Hanh Crawford MD DATE: 07/17/2017 PROCEDURE: Fluoroscopically guided radiofrequency ablation lateral branches left S1, S2 and S3 nerve root. PROCEDURE NOTE: History and physical was completed and signed. Consent was signed. Procedure site was marked. Medications were listed and reconciled. Pain score was recorded. Allergies were noted. Time out was taken. Fluoroscopy time was recorded where applicable. Sedation was administered or directed by Dr. Crawford. The patient was given oxygen. The patient was monitored by a registered nurse. Total procedure time was greater than 15 minutes. IV was started. Blood pressure cuff, pulse oximeter and EKG were applied. The patient was placed in the prone position on a Henrique table, sedated with small amounts of Demerol and propofol titrated to effect. Vital signs were monitored and remained stable throughout the procedure. The sacral area was prepped with alcohol and 10% Betadine solution and draped with sterile drapes. Fluoroscopy was used to visualize the left S1, S2, and S3 neural foramen. The skin was infiltrated with 1% Xylocaine using a 27-gauge needle. Then, an insulated 17-gauge radiofrequency needle with a 4-mm tip was advanced to positions which were cephalad and inferior and just lateral to the left S1, S2, and S3 neural foramen. Once properly positioned, thermal lesions took place at 60 degrees centigrade x 2-1/2 minutes. This was followed by injection of a small amount of Depo-Medrol at each site, for a total of 40 mg of Depo-Medrol. Following the procedure, the patient was taken to the recovery room with stable vital signs, neurologically intact. Hanh Crawford MD [facility] , 09:10 AM , 09:29 AM
== END | disposition home or self-care (01) ==
LOC: PHSDC 07:10
PROVIDERS: ATTEND Pain Medicine Interventional Pain Medicine
DX: M54.5 Low back pain (principal)
CPT/HCPCS: 64635; 64636; 99152; 99153; J1030; J2175; J2250